=== PATIENT | male | born 1955 | race Asian ===

== ENCOUNTER 2018-07-17 12:41 | Day surgery (SDC) | payer OTHER ==
[2018-07-17] MEDS ORDERED: MIDAZOLAM 1 MG/ML 2 ML INJ ×2 (16:09)
[2018-07-17] MEDS ORDERED: FENTAnyl 50 MCG/ML VIAL (16:09)
== END 2018-07-17 17:14 | disposition home or self-care (01) ==
LOC: GIL 12:41
DX: Z12.11 Encounter for screening for malignant neoplasm of colon (principal); D12.5 Benign neoplasm of sigmoid colon; K64.8 Other hemorrhoids; E11.9 Type 2 diabetes mellitus without complications
CPT/HCPCS: 45380; 82962; 88305